=== PATIENT | female | born 1990 | race Caucasian/White ===

== ENCOUNTER 2022-10-28 05:30 | Day surgery (SDC) | payer OTHER ==
[~2022-10-28] VITALS: Ht 175.3 cm; Wt 187.8 kg
[2022-10-28 06:43] LABS: HCG,QUAL RESULT NEGATIVE (NEGATIVE)
[2022-10-28] MEDS ORDERED: CEFAZOLIN SOD 1 GM in D5W 50 ML IV ONE (07:00)
[2022-10-28] MEDS ORDERED: MIDAZOLAM HCL 5 MG/5 ML VIAL IVP ONE (07:40)
[2022-10-28] MEDS ORDERED: BUPIVACAINE /PF 0.5% 30 ML VIAL INJ ONE (07:40)
[2022-10-28] MEDS ORDERED: fentaNYL CITRATE 250 MCG/5 ML AMP IV ONE (07:40)
[2022-10-28] MEDS ORDERED: SUGAMMADEX SODIUM 200 MG/2 ML VIAL IV ONE (07:40)
[2022-10-28] MEDS ORDERED: KETOROLAC TROMETHAMINE 30 MG VIAL IVP ONE (07:40)
[2022-10-28] MEDS ORDERED: NS 1000 ML IV.SOLN IV ONE (07:40)
[2022-10-28] MEDS ORDERED: NS IRRIG SOLN 1000 ML IR ONE (07:40)
[2022-10-28] MEDS ORDERED: ROCURONIUM BROMIDE 10 MG/ML (ZEMURON) IV ONE (07:40)
[2022-10-28] MEDS ORDERED: LR 1,000 ML IV.SOLN IV ONE (07:40)
[2022-10-28] MEDS ORDERED: DEXAMETHASONE SOD PHOSPHATE 4 MG/ML VIAL IVP ONE (07:40)
[2022-10-28] MEDS ORDERED: BUPIVACAINE /PF 0.25% 30 ML VIAL INJ ONE (07:40)
[2022-10-28] MEDS ORDERED: LIDOCAINE 1% 10 MG/ML, 20 ML MDV INJ ONE (07:40)
[2022-10-28] MEDS ORDERED: MEPERIDINE HCL/PF 25 MG/ML DISP.SYRIN IVP PRN (08:30)
[2022-10-28] MEDS ORDERED: MIDAZOLAM HCL 2 MG/2 ML VIAL (VERSED) IVP PRN (08:30)
[2022-10-28] MEDS ORDERED: METOCLOPRAMIDE HCL 10 MG/2 ML VIAL IVP PRN (08:30)
[2022-10-28] MEDS ORDERED: LABETALOL 100 MG/ 20ML VIAL IVP PRN (08:30)
[2022-10-28] MEDS ORDERED: LR 1,000 ML IV SCH (08:30)
[2022-10-28] MEDS ORDERED: hydrALAZINE HCL 20 MG/ML VIAL IVP PRN (08:30)
[2022-10-28] MEDS ORDERED: ACETAMINOPHEN I.V. 1000 MG 100 ML IV ONE (09:02)
[2022-10-28] MEDS ORDERED: HYDROmorphone 1 MG/ML INJ. CARTRIDGE IVP PRN (10:00)
[2022-10-28] MEDS ORDERED: HYDROcodone/ACETAMIN 5-325 MG TAB (NORCO/ VICODIN) PO PRN ×2 (10:00)
[2022-10-28] MEDS ORDERED: D5/0.45 NS 1,000 ML IV SCH (10:00)
[2022-10-28] MEDS ORDERED: HYDROmorphone 1 MG/ML INJ. CARTRIDGE ONE ×2 (10:04→10:19)
[2022-10-28] MEDS: HYDROmorphone 1 MG/ML INJ. CARTRIDGE IVP PRN ×4 (10:05→10:40)
[2022-10-28 16:51] VITALS: BP_SYST 99
== END 2022-10-28 12:50 | disposition home or self-care (01) ==
LOC: SDS 05:30 → SMU 05:30 → SDS 12:50
PROVIDERS: ATTEND Colon & Rectal Surgery
DX: K80.12 Calculus of gallbladder with acute and chronic cholecystitis without obstruction (principal); I10 Essential (primary) hypertension; Z20.822 Contact with and (suspected) exposure to COVID-19
CPT/HCPCS: 36415 ×2; 47562; 88304; 87426; 84703; U0003; J3490 ×3; J0690; J1100; J1885; J2001; J2250; J3010; J1170; Q9967; J7060; J7120; J7030; J0131; C1727; C1758